=== PATIENT | male | born 1940 | race Caucasian/White ===

== ENCOUNTER 2016-05-22 07:22 | Day surgery (SDC) | payer MEDICARE ==
[2015-04-15 14:40] VITALS: BMI 32.9
[2016-05-22] MEDS ORDERED: Lactated Ringer's 500 ML IV ONE (08:08)
[2016-05-22] MEDS ORDERED: Propofol 10 mg/ml Inj (20 ML) ONE (09:00)
[2016-05-22 09:52] VITALS: RESP 16; O2SAT 96
[2016-05-22 10:04] VITALS: BP 108/52; PULSE 79; TEMP 97.4
== END 2016-05-22 11:54 | disposition home or self-care (01) ==
LOC: H.ENDO 07:22
PROVIDERS: ATTEND Internal Medicine Gastroenterology
DX: Z12.11 Encounter for screening for malignant neoplasm of colon (principal); K29.50 Unspecified chronic gastritis without bleeding; K44.9 Diaphragmatic hernia without obstruction or gangrene; K57.30 Diverticulosis of large intestine without perforation or abscess without bleeding; K64.8 Other hemorrhoids; E11.9 Type 2 diabetes mellitus without complications; I10 Essential (primary) hypertension
CPT/HCPCS: 43239; 45378; 82948; 88305; J2001; J2704; J7120

== ENCOUNTER 2016-10-16 08:30 | Emergency (ER) | payer MEDICARE, SELFPAY ==
[2016-10-16 08:36] VITALS: BMI 30.9
[2016-10-16 08:45] VITALS: RESP 16
--- NOTE | 2016-10-16 08:59 | ED PDOC ---
HPI: General Adult Time Seen by Provider: 10/16/16 08:43 Chief Complaint (Nursing): ENT Problem Chief Complaint (Provider): Bloody sputum History Per: Patient History/Exam Limitations: no limitations Onset/Duration Of Symptoms: Hrs Have you had recent travel within the past 21 days to any of the following countries: [place], [place], [place] or [place]?: No Current Symptoms Are (Timing): Still Present Additional History Per: Patient Additional Complaint(s): The patient is a 76yo male, hx of DM, hypertension, prostate surgery, presents to the ED for evaluation s/p coughing up blood tinges sputum 2x this morning. Patient denies any associated fever, chest pain, shortness of breath, palpitation, blood thinner use. Patient also denies any recent travel. Of note, patient states he had similar symptoms in the past which resolved of their own. Past Medical History Reviewed: Historical Data, Nursing Documentation, Vital Signs Vital Signs: Last Vital Signs Temp 98 F 10/16/16 13:08 Pulse 68 10/16/16 13:08 Resp 16 10/16/16 13:08 BP 140/70 10/16/16 13:08 Pulse Ox 98 10/16/16 13:08 - Medical History PMH: Arthritis, Benign Prostatic Hyperplasia, GERD, HTN, Hyperlipidemia, TIA () Denies: Chronic Kidney Disease - Surgical History Surgical History: Endoscopy - Family History Family History: States: Unknown Family Hx - Immunization History Hx Influenza Vaccination: Yes Hx Pneumococcal Vaccination: Yes - Home Medications Home Medications: Ambulatory Orders Medication Instructions Recorded Aspirin 325 mg PO DAILY #30 tab 10/13/14 Losartan/Hydrochlorothiazide 1 tab PO DAILY 04/15/15 [Hyzaar 25 mg-100 mg] Finasteride [Proscar] 5 mg PO DAILY 05/22/16 metFORMIN [glucOPHAGE] 500 mg PO BID 05/22/16 - Allergies Allergies/Adverse Reactions: Allergies Allergy/AdvReac Type Severity Reaction Status Date / Time No Known Allergies Allergy Verified 10/16/16 08:43 Review of Systems ROS Statement: Except As Marked, All Systems Reviewed And Found Negative Cardiovascular: Negative for: Chest Pain, Palpitations Respiratory: Positive for: Sputum (blood tinged). Negative for: Shortness of Breath Physical Exam - Reviewed Nursing Documentation Reviewed: Yes Vital Signs Reviewed: Yes - Physical Exam Appears: Positive for: Well, Non-toxic, No Acute Distress Head Exam: Positive for: ATRAUMATIC, NORMAL INSPECTION, NORMOCEPHALIC Skin: Positive for: Normal Color, Warm, DRY Eye Exam: Positive for: EOMI, Normal appearance, PERRL Neck: Positive for: Normal, Supple Cardiovascular/Chest: Positive for: Regular Rate, Rhythm Respiratory: Positive for: Normal Breath Sounds. Negative for: Respiratory Distress Gastrointestinal/Abdominal: Positive for: Normal Exam, Soft. Negative for: Tenderness Extremity: Positive for: Normal ROM. Negative for: Deformity, Swelling Neurologic/Psych: Positive for: Alert, Oriented. Negative for: Motor/Sensory Deficits - Laboratory Results Result Diagrams: 10/16/16 09:15 10/16/16 09:15 - ECG O2 Sat by Pulse Oximetry: 96 - CT Scan/US CT chest Other Rad Studies (CT/US): Radiology Report Reviewed (Unremarkable CT pulmonary angiogram. No pulmonary embolus.) Medical Decision Making Medical Decision Making: Time: 0850 Impression: Bronchitis, pneumonia Plan: -- Labs -- Chest x-ray -- EKG -- CT Angio Reassess Time: 1210 CT Angio Impression: Unremarkable CT. No pulmonary embolus. Chest x-ray impression: no acute findings. Labs within normal levels, patient stable for discharge home. Scribe Attestation: Documented by Heather Turner acting as a scribe for Mary Rodriguez MD. Provider Attestation: All medical record entries made by the Scribe were at my direction and personally dictated by me. I have reviewed the chart and agree that the record accurately reflects my personal performance of the history, physical exam, medical decision making, and the department course for this patient. I have also personally directed, reviewed, and agree with the discharge instructions and disposition. Disposition - Clinical Impression Clinical Impression: Hemoptysis - Patient ED Disposition Is Patient to be Admitted: No - Disposition Referrals: Emiliano Monterroso [Outside] Marc Ortiz MD [Family Provider] - Disposition: Routine/Home Disposition Time: 12:47 Condition: STABLE Instructions: Hemoptysis (ED) Forms: [employer] (Turkmen) Print Language: OCCITAN
[2016-10-16 09:27] LABS: BASO % 0.5 % (0.0-2.0); EOS # 0.2 K/uL (0.0-0.7); EOS % 2.6 % (0.0-4.0); HEMOGLOBIN 13.8 g/dL (12.0-18.0); LYMPH # 1.9 K/uL (1.0-4.3); LYMPH % 31.8 % (20.0-40.0); MEAN CELL VOLUME 93.2 fl (80.0-94.0); MEAN CORPUSCULAR HGB CONC 33.3 g/dL (33.0-37.0); MEAN PLATELET VOLUME 9.4 fl (7.2-11.7); MONO # 0.7 K/uL (0.0-0.8); MONO % 11.5 % (0.0-10.0); NEUT # 3.1 K/uL (1.8-7.0); NEUT % 53.6 % (50.0-75.0); NRBC % 0.1 % (0.0-0.0); RBC 4.45 Mil/uL (4.40-5.90); RED CELL DISTRIBUTION WIDTH 14.1 % (11.5-14.5); WHITE BLOOD COUNT 5.8 K/uL (4.8-10.8)
--- NOTE | 2016-10-16 09:36 | RAD ---
HISTORY: Cough COMPARISON: No prior. TECHNIQUE: Chest PA and lateral FINDINGS: LUNGS: No active pulmonary disease. PLEURA: No significant pleural effusion identified. No pneumothorax apparent. CARDIOVASCULAR: Normal. OSSEOUS STRUCTURES: No significant abnormalities. VISUALIZED UPPER ABDOMEN: Normal. OTHER FINDINGS: None. IMPRESSION: No radiographic evidence of pneumonia.
[2016-10-16 09:38] LABS: ALB/GLOB RATIO 1.2 (1.0-2.1); ALBUMIN 4.2 g/dL (3.5-5.0); ALT/SGPT 34 U/L (21-72); AST/SGOT 19 U/L (17-59); BLOOD UREA NITROGEN 22 mg/dl (9-20); CALCIUM 9.5 mg/dL (8.4-10.2); GFR AFRICAN-AMERICAN > 60; GFR NON-AFRICAN AMERICAN > 60
[2016-10-16 09:56] LABS: INR 1.1 (0.9-1.2); PARTIAL THROMBOPLASTIN TIME 30.8 Seconds (25.6-37.1); PROTHROMBIN TIME 11.8 Seconds (9.8-13.1)
[2016-10-16] MEDS ORDERED: Iodixanol 320 MG/ML 100 ML BOTTLE IV ONE (10:42)
[2016-10-16] MEDS ORDERED: Sodium Chloride 0.9% 50 ML IV ONE (10:42)
--- NOTE | 2016-10-16 12:03 | CT ---
PROCEDURE: CT Chest with contrast (Pulmonary Angiogram) HISTORY: Blood-tinged sputum COMPARISON: None available. TECHNIQUE: Axial computed tomography images were obtained of the chest in the pulmonary arterial phase of enhancement. Coronal and sagittal reformatted images were created and reviewed. Intravenous contrast dose: 99 cc Visipaque [id number]. Mean Hounsfield unit values in the main pulmonary artery: 267.23 Radiation dose: Total exam DLP = 339.23 mGy-cm. This CT exam was performed using one or more of the following dose reduction techniques: Automated exposure control, adjustment of the mA and/or kV according to patient size, and/or use of iterative reconstruction technique. FINDINGS: PULMONARY ARTERIES: Unremarkable. No pulmonary embolism. AORTA: No acute findings. No thoracic aortic aneurysm. LUNGS: Unremarkable. No nodule, mass or pulmonary consolidation. PLEURAL SPACES: Unremarkable. No effusion or pneuomothorax. HEART: Unremarkable. No cardiomegaly. No significant pericardial effusion. LYMPH NODES: No lymphadenopathy. BONES, CHEST WALL: Unremarkable. No fracture or destructive lesion degenerative change, non marginal osteophyte formation primarily. OTHER FINDINGS: Cholelithiasis without CT evidence of acute cholecystitis. Small hiatal hernia, thickening of the distal esophagus. IMPRESSION: Unremarkable CT pulmonary angiogram. No pulmonary embolus. Additional benign and/or incidental findings described above.
[2016-10-16 13:09] VITALS: BP 140/70; PULSE 68; TEMP 98
--- NOTE | 2016-10-17 08:09 | CARD ---
APPROVED REPORT EKG Measurement Heart [id number] [id number] [id number] <Conclusion> Normal sinus rhythm Borderline ECG
[2016-10-17 17:49] VITALS: O2SAT 96
== END 2016-10-16 13:09 | disposition home or self-care (01) ==
LOC: H.ER 08:30
DX: R04.2 Hemoptysis (principal); E78.5 Hyperlipidemia, unspecified; I10 Essential (primary) hypertension; K21.9 Gastro-esophageal reflux disease without esophagitis; N40.0 Benign prostatic hyperplasia without lower urinary tract symptoms; Z79.82 Long term (current) use of aspirin; Z79.84 Long term (current) use of oral hypoglycemic drugs; Z86.73 Personal history of transient ischemic attack (TIA), and cerebral infarction without residual deficits
CPT/HCPCS: 71020; 71275; 80053; 82948; 85025; 85378; 85610; 85730; 87040; 93005; 99282; Q9967